=== PATIENT | male | born 1930 ===

== ENCOUNTER 2017-02-06 16:10 | Emergency (ER) | payer SELFPAY ==
--- NOTE | 2017-02-09 18:28 | ER ---
ADMIT: 02/06/2017 RM/LOC: ER [facility] MR#: [id number] [place], [place] [id number] QUIRINO WATSON [address] [address] Emergency Room Report SEX: M AGE: 86 : 1930 DATE: 02/06/2017 TIME: 1610 hours. Please refer to my T-sheet for complete H and P. HISTORY OF PRESENT ILLNESS: Briefly, the patient is an 86-year-old who was brought in after exposure to carbon monoxide. There were six total members brought in by ambulance. Him and two of the other ladies had some symptoms, rest of them did not. However, there was a parked car running in the garage for the last 2-3 hours, the connected garage, and the door was open a little bit. When the paramedics arrived, the carbon monoxide levels in the house were high. They transported everybody. By the time he gets here, he says he feels fine. He originally felt a little headache. PHYSICAL EXAMINATION: VITAL SIGNS: Stable. GENERAL: No acute distress. HEENT: Grossly normal. LUNGS: Clear. HEART: Regular. ABDOMEN: Soft. NEURO: At his baseline. EMERGENCY DEPARTMENT COURSE: I did a carboxyhemoglobin on him. He was the only one I alyson one on because he was the longest exposure. Kept him on a non- rebreather the whole time. He had no symptoms, so the EMS started him on a non-rebreather at probably 3:30. We kept him here till 6 on the non- rebreather. He was feeling much better and ready for discharge. ASSESSMENT: Carbon monoxide exposure with elevated carboxyhemoglobin. PLAN: Do not return to the house unless cleared. Continue care. Return if worse. Chon Umana MD/ kayla JOB #: [id number] CC: Chon Umana MD, Attending Physician
== END 2017-02-06 18:05 | disposition home or self-care (01) ==
LOC: ER 16:10
DX: R79.89 Other specified abnormal findings of blood chemistry (principal); Z77.29 Contact with and (suspected) exposure to other hazardous substances